=== PATIENT | female | born 1995 | race African-American/Black ===

== ENCOUNTER 2020-12-15 02:25 | Emergency (ER) | payer MEDICAID, OTHER ==
[~2020-12-15] VITALS: Ht 149.9 cm; Wt 39.9 kg
--- NOTE | 2020-12-15 02:31 | NUR ---
pt bibems c/o abd pain with n/v x3days. Pt aaox4 breathing evenly and unlabored. pt states that she has had pain since she "discovered she was 3 days ago". pt has hx of tendon release surgery and pt states she had her appendix removed in sep 2020. pt skin warm, dry, and intact. pt brought in covered in feces. Pt was cleaned and changed into a gown. Urine obtained and sent to lab. pt attached to monitor and pox. given blanket and call light within reach. will continue to monitor.
--- NOTE | 2020-12-15 03:45 | NUR ---
pt sleeping. easily arousable.
[2020-12-15 03:48] LABS: BILIRUBIN,URINE NEGATIVE (NEGATIVE); COLOR,URINE YELLOW (YELLOW); LEUKOCYTE ESTERASE ,URINE NEGATIVE (NEGATIVE); NITRITE, URINE NEGATIVE (NEGATIVE); PH,URINE 8.5 (5.0-8.0); PROTEIN,URINE NEGATIVE (NEGATIVE); UGLUCOSE NEGATIVE (NEGATIVE)
[2020-12-15 03:54] LABS: BASOPHILS % (AUTO) 0.4 % (0.0-2.0); EOSINOPHILS % (AUTO) 2.4 % (0.0-6.0); HEMATOCRIT 36 % (33-45); HEMOGLOBIN 11.9 g/dL (11.5-14.8); LYMPHOCYTES # (AUTO) 0.5 /CMM (0.8-4.8); MEAN CORPUSCULAR HGB CONC 33 g/dl (31.0-36.0); MEAN CORPUSCULAR VOLUME 84 fL (82-100); MONOCYTES # (AUTO) 0.3 /CMM (0.1-1.30); NEUTROPHILS # (AUTO) 2.8 /CMM (1.8-8.9); NEUTROPHILS % (AUTO) 75.2 % (43.0-81.0); PLATELET COUNT (AUTO) 196 /CMM (150-450); RED BLOOD CELL COUNT(AUTO) 4.32 MIL/uL (4.0-5.2); WHITE BLOOD COUNT (AUTO) 3.7 K/uL (4.3-11.0)
[2020-12-15 04:02] LABS: CALCIUM, SERUM 8.4 mg/dL (8.5-10.1); CREATININE 0.4 mg/dL (0.6-1.3); POTASSIUM 3.7 mmol/L (3.5-5.1)
[2020-12-15 04:29] LABS: ALBUMIN 3.1 g/dL (3.4-5.0); BILIRUBIN,DIRECT 0.1 mg/dL (0.0-0.2); BILIRUBIN,TOTAL 0.2 mg/dL (0.2-1.0); TOTAL PROTEIN, SERUM 6.7 g/dL (6.4-8.2)
--- NOTE | 2020-12-15 07:17 | NUR ---
GAVE REPORT TO MARISA WHEELER FOR FRITZ
--- NOTE | 2020-12-15 10:47 | NUR ---
PATIENT AWAKE AND ALERT, SEEN AND CONSULTED BY WEBSPHERE ARCHITECT. PER SSD, PATIENT PREFERS TO GO BACK TO [facility], WILL FOLLOW UP ON HER OWN CLINIC.
--- NOTE | 2020-12-15 11:33 | NUR ---
Patient assisted with diaper change, and skin care. Patient awake alert and oriented, able to verbalize needs. Resources provided by delinquency prevention social worker. Patient given written and verbal discharge instructions. Patient verbalizes understanding of instructions. Patient is ambulatory with steady gait. Refuses offer of custodial placement. Patient given list of available shelters in surrounding area.
[2020-12-15 11:37] VITALS: BP 114/76
--- NOTE | 2020-12-15 13:14 | NUR ---
Stock Broker Supervisor Consultation: 10:35am: This SW met with the patient for a social work instructor consultation. Reason for consultation is homelessness. Patient is a 25 year old female, alert, oriented x 4, receptive to speaking with this SW. Patient was brought in by ambulance due to abdominal pain. Patient is diagnosed with Cerebral Palsy, and uses a wheelchair for mobility. Patient reports being homeless, and that she has been homeless for "a very long time". Patient reports that [place] in the [place] area, and that she wants to return there after being discharged from the hospital. Patient reports finding out on Sunday that she was , and stated that she has an appointment on Sunday with her doctor at the [facility] clinic to discuss her options. SW assessed for patient's need for resources on care, and patient stated "I'm probably going to have an ". SW assessed additional psychosocial needs for the patient, and offered to provide patient homeless community resources, and patient was receptive to all resources that this SW offered. Patient reported daily use of amphetamines, however stated that she has not used since Sunday, when she found out that she was . Patient denied use of any other drugs. Patient denied use of alcohol or drugs. Patient stated she takes Abilify for her Anxiety. Patient denied SI. Patient was cooperative with this SW. No hallucinations or delusions reported or observed. SW provided the following homeless resources to the patient: Substance Abuse resources provided included: [facility] Self-[facility] ([facility]) ; [facility] [address] [facility]. [place] [address] ; [facility] [address] [facility] [address] ; [facility] [address] [facility] [address] ; [facility] [address] [facility] [address] ; [facility] [address] [facility] [phone] ; [place] [facility]: [facility] [address] [place], [address]; ; Anitha Doyle [place], [address] [place], [address], ; [place], [address] [facility], [address], ; [place], [address] [facility], [address], ; [place], [address] [facility]. [place], [address], Hygiene: [facility]: [address] [place] ; [facility] [address] [facility] ; [facility] [address] [facility] [place] . Food Resources: [place] [facility]- [address] [facility]. [place]; Meet Each Need with Dignity ([facility]) [address] [facility]; [facility] [address] [facility]; [facility] [address] [facility]. Mental Health resources provided: PSYCHIATRIC [address] [place], [place] [id number] ; [facility] [employer] [address] [facility] [address], [place], [place] [id number] ; Norma Chilel [facility] [address] [address] [place], [place] [id number] ; [facility] [address] [place], [place] [id number] Healthcare Clinics: [facility] [address], [address] [place]. [place] ; [facility] [address] [facility] [address] [place] [address]; [facility] [address] [facility]. [place] [phone] Resources on Planned Parenthood: Valeria Raman [facility], [address] [address] ,[phone] Sunday thru Sunday, 8am-5pm Sunday, 8am-4pm Sunday, closed [facility] [address] [place] [address] Sunday thru Sunday, 8am-5pm Sunday, 8am-4pm Sunday, closed [facility] [address] [place] [address] Sunday, 5:45am-1:30pm Sunday thru Sunday, 8am-5pm Sunday, 8am-4pm Sunday, closed Patient signed the Homeless Patient Waiver Form. SW filed the form in the chart. Patient requested assistance with transportation, and SW offered to provide patient with a [employer] Bus Pass. EDDA informed MARISA Gunn that social work instructor consult is complete, and patient has been provided with resources. EDDA asked Velia if a bus pass could be provided to the patient, and Velia to follow-up. No further SS interventions needed at this time, however EDDA will remain available, if needed.
== END 2020-12-15 11:38 | disposition home or self-care (01) ==
LOC: ER 02:27
DX: O21.9 Vomiting of pregnancy, unspecified (principal); O26.91 Pregnancy related conditions, unspecified, first trimester; R10.30 Lower abdominal pain, unspecified; Z88.6 Allergy status to analgesic agent; Z3A.08 8 weeks gestation of pregnancy
CPT/HCPCS: 36415; 76805-TC; 80048-TC; 80076-TC; 83690-TC; 84702-TC; 84703-TC; 85025-TC

== ENCOUNTER 2024-04-27 02:40 | Emergency (ER) | payer MEDICAID ==
[~2024-04-27] VITALS: Ht 167.6 cm; Wt 59.0 kg
[2024-04-27 02:46] VITALS: BP 149/94; TEMP 98.8; O2SAT 96
[2024-04-27] MEDS ORDERED: ARIP5TAB10 PO (02:53)
== END 2024-04-27 03:28 | disposition home or self-care (01) ==
LOC: ER 03:02
DX: F29 Unspecified psychosis not due to a substance or known physiological condition (principal); Z76.0 Encounter for issue of repeat prescription; Z79.899 Other long term (current) drug therapy; Z88.5 Allergy status to narcotic agent